=== PATIENT | female | born 1995 | race Caucasian/White ===

== ENCOUNTER → 2021-07-10 | Outpatient (CLI) | payer BC ==
[2021-07-10 19:25] LABS: ALT 15 U/L (4-34); AST 22 U/L (14-36); African American GFR (CKD) >90 (>60 ml/min/1.73 sqM); Basophils % (A) 0 %; Blood Urea Nitrogen 3 mg/dL (7-17); Eosinophils # (A) 0.1 k/uL (0-0.7); Eosinophils % (A) 1 %; HCT 40.3 % (34.0-46.0); HGB 13.7 gm/dL (11.4-16.0); LDH 498 U/L (313-618); Lymphocytes # (A) 1.7 k/uL (1.0-4.8); Lymphocytes % (A) 18 %; MCH 29.3 pg (25.0-35.0); MCV 86.2 fL (80.0-100.0); Mean Platelet Volume 8.8; Monocytes # (A) 0.3 k/uL (0-1.0); Monocytes % (A) 3 %; Neutrophils # (A) 7.3 k/uL (1.3-7.7); Neutrophils % (A) 76 %; Non-African American GFR(CKD) >90 (>60 ml/min/1.73 sqM); Platelet Count 212 k/uL (150-450); RBC 4.67 m/uL (3.80-5.40); RDW 13.6 % (11.5-15.5); Uric Acid 3.9 mg/dL (3.7-7.4); WBC 9.5 k/uL (3.8-10.6)
[2021-07-10 19:26] LABS: Creatinine,Urine Random 12.6 mg/dL; Protein/Creatinine Ratio,Urine 1.111
[2021-07-10 19:36] LABS: Appearance,Urine Clear (Clear); Bilirubin,Urine Negative (Negative); Blood,Urine Negative (Negative); Color,Urine Colorless; Glucose,Urine (UA) Negative (Negative); Ketones,Urine Negative (Negative); Leukocyte Esterase,Urine Negative (Negative); Nitrite,Urine Negative (Negative); PH, Urine 6.5 (5.0-8.0); Protein,Urine Negative (Negative); Specific Gravity,Urine 1.001 (1.001-1.035); Squamous Epithelial Cell,Urine 2 /hpf (0-4); Urobilinogen,Urine <2.0 mg/dL (<2.0); WBC,Urine <1 /hpf (0-5)
== END | disposition home or self-care (01) ==
LOC: FBPOP 14:02
PROVIDERS: ATTEND Obstetrics & Gynecology
DX: O13.9 Gestational [pregnancy-induced] hypertension without significant proteinuria, unspecified trimester (principal); Z3A.00 Weeks of gestation of pregnancy not specified
CPT/HCPCS: 81003; 82565; 82570; 83615; 84156; 84450; 84460; 84520; 84550; 85025

== ENCOUNTER 2021-08-01 06:00 | Inpatient (IN) | payer BC ==
--- NOTE | 2021-07-31 19:21 | P.HPOB ---
History of Present Illness H&P Date: 07/31/21 Chief Complaint: Preeclampsia This is a 26 y.o. female, 1, para 0, with an estimated date of confinement of 08/20/2021, estimated gestational age of 37-2/7 weeks, who presents for induction of labor due to preeclampsia. She was diagnosed with preeclampsia on 07/10/2021 with a protein/creatinine ratio of 1.1. All other labs have been normal and blood pressures have been mildly elevated. She denies headache, blurred vision, or epigastric pain. is also complicated by +Toxoplasma IgM. She was seen by [facility] who believes it was a false positive. She declined amniocentesis. labs: Hepatitis B surface antigen-neg RPR-NR Rubella-immune HIV-NR Blood type-A+ Antibody screen-neg Hemoglobin-14.5 Toxoplasma IGM-positive 1 hr. GTT-117 GBS-neg OB Hx: 1st preg. [employer] Hx: No hx STDs Social Hx: Single. Works at [employer]. Review of Systems Constitutional: Denies chills, Denies fever Eyes: denies blurred vision, denies pain Ears, nose, mouth and throat: Denies headache, Denies sore throat Cardiovascular: Denies chest pain, Denies shortness of breath Respiratory: Denies cough Gastrointestinal: Reports abdominal pain (irregular contractions) Genitourinary: Reports pelvic pain, Reports Musculoskeletal: Reports low back pain Integumentary: Denies pruritus, Denies rash Neurological: Denies numbness, Denies weakness Psychiatric: Denies anxiety, Denies depression Past Medical History Past Medical History: No Reported History Past Surgical History: No Surgical Hx Reported Past Anesthesia/Blood Transfusion Reactions: No Reported Reaction Past Psychological History: No Psychological Hx Reported Smoking Status: Never smoker Past Alcohol Use History: None Reported Past Drug Use History: None Reported - Past Family History Mother Family Medical History: No Reported History Medications and Allergies Home Medications Medication Instructions Recorded Confirmed Type Niu666/Iron/FA/O3/Dha/Epa/Fish 07/31/21 History [ Multi-Dha Softgel] Allergies Allergy/AdvReac Type Severity Reaction Status Date / Time No Known Allergies Allergy Verified 07/31/21 19:16 Exam Osteopathic Statement: *. No significant issues noted on an osteopathic structural exam other than those noted in the History and Physical/Consult. HEENT: within normal limits Heart: regular rate and rhythm Lungs: clear to auscultation bilaterally Abdomen: Cervix: 1 cm/70%/-2 heart tones: 140's by doppler Extremities: neg. Ashley's Assessment and Plan (1) 37 weeks gestation of Status: Acute Code(s): Z3A.37 - 37 WEEKS GESTATION OF SNOMED Code(s): 46998499 (2) Preeclampsia Status: Acute Code(s): O14.90 - UNSPECIFIED PRE-ECLAMPSIA, UNSPECIFIED TRIMESTER SNOMED Code(s): 179166131 Plan: Admit for oxytocin induction of labor. Expectant management. Epidural anesthesia if desired. Observation of blood pressures.
[2021-08-01] MEDS: LACTATED RINGERS 1,000 ML IV SCH ×3 (06:30→14:29)
[2021-08-01] MEDS ORDERED: OXYTOCIN 30 UNITS/500 ML NS 30 UNIT in SALINE 1 500ML.BAG IV SCH ×2 (06:31→17:00)
[2021-08-01] MEDS ORDERED: TERBUTALINE 1 MG/ML VIAL SQ PRN (06:31)
[2021-08-01] MEDS ORDERED: METHYLERGONOVINE 0.2 MG/ML 1 ML AMP IM PRN (06:31)
[2021-08-01] MEDS ORDERED: LIDOCAINE 1% (10MG/ML) FOR IV START INTRADERMA PRN (06:31)
[2021-08-01] MEDS ORDERED: OXYTOCIN 10 UNIT/ML 1 ML VIAL IM PRN (06:31)
[2021-08-01] MEDS ORDERED: CARBOPROST TROMETHAMINE 250 MCG/ML 1 ML AMP IM PRN (06:31)
[2021-08-01] MEDS ORDERED: LIDOCAINE 0.5% (PF) 5 MG/ML (50 ML SDV) SQ PRN (06:31)
[2021-08-01 06:52] LABS: Basophils % (A) 0 %; Eosinophils # (A) 0.1 k/uL (0-0.7); Eosinophils % (A) 1 %; HCT 38.9 % (34.0-46.0); HGB 13.2 gm/dL (11.4-16.0); Lymphocytes # (A) 1.8 k/uL (1.0-4.8); Lymphocytes % (A) 22 %; MCH 29.1 pg (25.0-35.0); MCHC 33.9 g/dL (31.0-37.0); MCV 85.8 fL (80.0-100.0); Mean Platelet Volume 10.1; Monocytes # (A) 0.3 k/uL (0-1.0); Monocytes % (A) 4 %; Neutrophils # (A) 5.8 k/uL (1.3-7.7); Neutrophils % (A) 71 %; Platelet Count 178 k/uL (150-450); RBC 4.53 m/uL (3.80-5.40); RDW 14.1 % (11.5-15.5); WBC 8.2 k/uL (3.8-10.6)
[2021-08-01 07:00] LABS: ALT 13 U/L (4-34); AST 22 U/L (14-36); African American GFR (CKD) >90 (>60 ml/min/1.73 sqM); Blood Urea Nitrogen 11 mg/dL (7-17); LDH 488 U/L (313-618); Non-African American GFR(CKD) >90 (>60 ml/min/1.73 sqM); Uric Acid 5.1 mg/dL (3.7-7.4)
[2021-08-01 09:20] LABS: Glucose,Urine (UA) Negative (Negative); Ketones,Urine Negative (Negative); Protein,Urine 1+ (Negative)
[2021-08-01] MEDS ORDERED: SODIUM CHLORIDE 0.9% 100 ML BAG ONE (09:47)
[2021-08-01] MEDS ORDERED: ROPIVACAINE 5MG/ML 20ML VIAL ONE (09:47)
[2021-08-01] MEDS ORDERED: fentaNYL (PF) 50 MCG/ML 5 ML AMP ONE (09:47)
[2021-08-01] MEDS ORDERED: diphenhydrAMINE 50 MG/ML 1 ML VIAL IVP PRN ×2 (17:00)
[2021-08-01] MEDS ORDERED: diphenhydrAMINE 50 MG CAP PO PRN (17:00)
[2021-08-01] MEDS ORDERED: HYDROCORTISONE 2.5% RECTAL CREAM 30 GM TUBE RECTAL PRN (17:00)
[2021-08-01] MEDS ORDERED: BENZOCAINE/MENTHOL SPRAY 1 GM/SPRAY AEROSOL TOPICAL PRN (17:00)
[2021-08-01] MEDS ORDERED: SIMETHICONE 80 MG CHEWABLE PO PRN (17:00)
[2021-08-01] MEDS ORDERED: ZOLPIDEM 5 MG TAB PO PRN (17:00)
[2021-08-01] MEDS ORDERED: ACETAMINOPHEN TAB 325 MG TAB PO PRN (17:00)
[2021-08-01] MEDS ORDERED: diphenhydrAMINE 25 MG CAP PO PRN (17:00)
[2021-08-01] MEDS ORDERED: LANOLIN CREAM 5 GM TUBE TOPICAL PRN (17:00)
--- NOTE | 2021-08-01 18:25 | P.PROBDLV ---
Vaginal Delivery Note - . Vaginal Delivery Note: The patient progressed to complete dilation after oxytocin induction of labor and artificial rupture membranes with clear fluid noted. She did receive epidural anesthesia. Once reaching complete, she began pushing. 's head came to a crown. With one further push, the infant's head delivered across the perineum followed by the anterior shoulder. Nose and mouth were bulb suctioned at the perineum. With one further push, the remainder the easily deliv ered and was placed on mother's abdomen. Nose and mouth were bulb suctioned. There was noted to be a fairly short cord. Cord was clamped and cut and was taken to warmer for evaluation. A viable male was noted with scores of 8 at 1 minute and 9 at 5 minutes and infant weight is 6 lbs. 7 oz. Placenta delivered shortly thereafter, intact, with a three-vessel cord. Uterus contracted well after oxytocin was given and uterine massage was carried out. Inspection of the perineum revealed a small second-degree perineal laceration. This area was anesthetized with 1% lidocaine and then sutured with 3-0 Vicryl suture in the usual multilayer fashion. Estimated blood loss is approximately 150 mL's. Both mother and infant are in stable condition.
[2021-08-01] MEDS: PRENATAL VIT-IRON-FOLIC ACID 1 EACH TABLET PO SCH (19:34)
[2021-08-01] MEDS: SENNOSIDES-DOCUSATE SODIUM 1 EACH TAB PO SCH (20:07)
[2021-08-01] MEDS: IBUPROFEN 600 MG TAB PO PRN (22:27)
[2021-08-02] MEDS: IBUPROFEN 600 MG TAB PO PRN ×3 (04:35→19:45)
[2021-08-02 07:34] LABS: Basophils # (A) 0.1 k/uL (0-0.2); Basophils % (A) 1 %; Eosinophils # (A) 0.1 k/uL (0-0.7); Eosinophils % (A) 1 %; HCT 36.5 % (34.0-46.0); HGB 12.1 gm/dL (11.4-16.0); Lymphocytes # (A) 2.2 k/uL (1.0-4.8); Lymphocytes % (A) 19 %; MCH 28.7 pg (25.0-35.0); MCV 86.8 fL (80.0-100.0); Mean Platelet Volume 10.8; Monocytes # (A) 0.5 k/uL (0-1.0); Monocytes % (A) 4 %; Neutrophils # (A) 8.4 k/uL (1.3-7.7); Neutrophils % (A) 73 %; Platelet Count 146 k/uL (150-450); RDW 13.9 % (11.5-15.5); WBC 11.4 k/uL (3.8-10.6)
--- NOTE | 2021-08-02 08:58 | P.PNOBGVD ---
Subjective - Subjective Principal diagnosis: Status post vaginal delivery day #1, preeclampsia Interval history: Patient is doing well. Lochia is decreasing. Her pain is well-controlled. She is working on breast-feeding. She denies any other symptoms of preeclampsia. Patient reports: Reports appetite normal, Reports voiding normally, Reports pain well controlled, Reports ambulating normally [place]: doing well, nursing well Objective - Latest Vital Signs Latest vital signs: Vital Signs Temp Pulse Resp BP Pulse Ox 08/02/21 04:00 97.5 F L 66 16 126/71 97 08/02/21 00:00 98.2 F 98 16 125/92 97 08/01/21 20:00 98.2 F 107 H 18 130/50 97 08/01/21 19:08 90 16 125/76 08/01/21 18:38 93 16 124/79 08/01/21 18:03 98.2 F 95 16 132/73 08/01/21 17:48 93 16 130/70 08/01/21 17:33 97 16 143/72 08/01/21 17:18 93 16 133/67 08/01/21 17:04 104 H 16 135/66 08/01/21 16:48 98.2 F 101 H 16 144/73 Intake and Output 08/01/21 08/02/21 08/02/21 22:59 06:59 14:59 Intake Total 21.267 Output Total 450 Balance -428.733 Intake: Intake, IV Titration 21.267 Amount Oxytocin 30 Units/500 ml 21.267 Ns 30 unit In Saline 1 500ml.bag @ Per Protocol IV .Q0M [facility] Rx#:[id number] Output: Urine 350 Output, Quantitative 100 Blood Loss Other: # Voids 1 - Exam Extremities: Present: normal. Absent: tenderness Abdomen: Present: normal appearance, soft. Absent: distention, tenderness Uterus: Present: normal, firm. Absent: tenderness - Labs Labs: Abnormal Lab Results - Last 24 Hours (Table) 08/01/21 08/02/21 Range/Units 08:15 07:22 WBC 11.4 H (3.8-10.6) k/uL Plt Count 146 L (150-450) k/uL Neutrophils # 8.4 H (1.3-7.7) k/uL Urine Protein 1+ H (Negative) Assessment and Plan Assessment: Status post vaginal delivery day #1. Gestational hypertension/preeclampsia-blood pressures stable at this time (1) 37 weeks gestation of Current Visit: No Status: Acute Code(s): Z3A.37 - 37 WEEKS GESTATION OF SNOMED Code(s): 99152503 (2) Preeclampsia Current Visit: No Status: Acute Code(s): O14.90 - UNSPECIFIED PRE-ECLAMPSIA, UNSPECIFIED TRIMESTER SNOMED Code(s): 972548688 Plan: We'll continue to observe and monitor for 1 more day due to her history of preeclampsia.
[2021-08-02] MEDS: SENNOSIDES-DOCUSATE SODIUM 1 EACH TAB PO SCH ×2 (10:09→19:46)
[2021-08-02] MEDS: PRENATAL VIT-IRON-FOLIC ACID 1 EACH TABLET PO SCH (19:46)
[2021-08-03] MEDS: IBUPROFEN 600 MG TAB PO PRN (06:05)
[2021-08-03] MEDS: SENNOSIDES-DOCUSATE SODIUM 1 EACH TAB PO SCH (07:59)
[2021-08-03 08:10] VITALS: BP 130/77; PULSE 64; RESP 16; TEMP 97.9
[2021-08-03] MEDS: PRENATAL VIT-IRON-FOLIC ACID 1 EACH TABLET PO SCH (09:57)
--- NOTE | 2021-08-03 10:54 | P.DS ---
Providers Date of admission: 08/01/21 06:08 Expected date of discharge: 08/03/21 Attending physician: Gisselle Salazar Primary care physician: Stated None - Discharge Diagnosis(es) (1) 37 weeks gestation of Current Visit: No Status: Acute (2) Preeclampsia Current Visit: No Status: Acute Hospital Course: This is a 26-year-old female 1 para 0 at 37-2/7 weeks who presented for induction of labor due to preeclampsia/gestational hypertension. She underwent oxytocin induction of labor and delivered vaginally a viable male with scores of 8 at 1 minute and 9 at 5 minutes and weight of 6 lbs. 7 oz. her course has been uncomplicated. Her blood pressures have stayed normal. She is breast-feeding. Lochia is decreasing. Pain is well- controlled. Vital signs are stable. Abdomen is soft with fundus firm and nontender. Extremities show negative Homans. Impression is status post vaginal delivery day #2. Plan is to discharge home today. Routine instructions are given. She will be given a prescription for a breast pump. She denies the need for any pain medication. She is advised to call the office if she has any further questions or concerns prior to her appointment time. Procedures: Oxytocin induction of labor Spontaneous vaginal delivery of a viable male infant on 08/01/2021 Patient Condition at Discharge: Stable Plan - Discharge Summary New Discharge Prescriptions: No Action [id number]/Iron/FA/O3/Dha/Epa/Fish [ Multi-Dha Softgel] 1 tab PO DAILY Discharge Medication List [id number]/Iron/FA/O3/Dha/Epa/Fish [ Multi-Dha Softgel] 1 tab PO DAILY 07/31/21 [History] Follow up Appointment(s)/Referral(s): Gisselle Salazar DO [Doctor of Osteopathic Medicine] - 09/08/21 3:30 pm Activity/Diet/Wound Care/Special Instructions: Instructions 1. Do not begin any exercise program for 3 weeks. 2. Do not resume sexual relations for 3 weeks or longer if uncomfortable. 3. You may take tub baths or showers at any time. 4. You may use tampons if desired after 3 weeks. 5. Keep the area of episiotomy (stitches) clean and dry. 6. If you are not nursing, wear a good fitting, supportive bra during the day and limit fluid intake for at least 1 week to prevent breast engorgement. 7. Call the office, [phone], within the next week to make appointment for your 6 week checkup if it has not already been made. 8. Report any of the following occurrences to the doctor promptly: a. Heavy, excessive bleeding b. Chills, fever c. Burning or frequency of urination d. Pain or redness and breasts if nursing e. Increasing pain or swelling in episiotomy (stitches). In addition to the above instructions, the following additional should be followed: 1. No heavy lifting or straining (exercising) until after 6 week checkup. 2. Keep abdominal incision clean and dry: You may wear a dressing if more comfortable. 3. Make office appointment for 10 days after going home or as instructed by her doctor. Discharge Disposition: HOME SELF-CARE
== END 2021-08-03 12:00 | disposition home or self-care (01) | DRG 807 ==
LOC: 4FBP 06:08
PROVIDERS: ADMIT Obstetrics & Gynecology; ATTEND Obstetrics & Gynecology
PROC: 10907ZC Drainage of Amniotic Fluid, Therapeutic from Products of Conception, Via Natural or Artificial Opening (ICD-10-PCS; principal; 2021-08-01)
PROC: 10E0XZZ Delivery of Products of Conception, External Approach (ICD-10-PCS; principal; 2021-08-01)
PROC: 00HU33Z Insertion of Infusion Device into Spinal Canal, Percutaneous Approach (ICD-10-PCS; principal; 2021-08-01)
PROC: 3E0R3NZ Introduction of Analgesics, Hypnotics, Sedatives into Spinal Canal, Percutaneous Approach (ICD-10-PCS; principal; 2021-08-01)
PROC: 0KQM0ZZ Repair Perineum Muscle, Open Approach (ICD-10-PCS; principal; 2021-08-01)
PROC: 3E033VJ Introduction of Other Hormone into Peripheral Vein, Percutaneous Approach (ICD-10-PCS; principal; 2021-08-01)
DX: O14.94 Unspecified pre-eclampsia, complicating childbirth (principal); Z37.0 Single live birth; O13.4 Gestational [pregnancy-induced] hypertension without significant proteinuria, complicating childbirth; O70.1 Second degree perineal laceration during delivery; O69.3XX0 Labor and delivery complicated by short cord, not applicable or unspecified; R76.8 Other specified abnormal immunological findings in serum; Z3A.37 37 weeks gestation of pregnancy
CPT/HCPCS: 81003; 82565; 83615; 84450; 84460; 84520; 84550; 85025; 86850; 86900; 86901; 88307